=== PATIENT | female | born 1985 ===

== ENCOUNTER 2018-01-11 08:41 | Observation (INO) | payer MEDICAID ==
[2018-01-11] MEDS ORDERED: Sodium Chloride 0.9% 2,000 ML IV ONE (09:03)
--- NOTE | 2018-01-11 09:03 | C.PDOC ---
History Of Present Illness 32 y/o female presents to the ED for abdominal pain. Patient is complaining of constant localized abdominal pain to the RLQ associated with near syncope. She also complains of nausea, vomiting, and dizziness since this morning. LMP unknown. PMD: none provided LIMITED DUE TO CLIN COND RLQ PAIN, NV, DIZZY SINCE THIS MORNING. UNK LAST LMP. PAIN CONSTANT LOCALIZED. + NEAR SYNCOPE. PSH CSECT. ROS LIMITED EXAM MOD DIST MILD TOX HEENT PERRLA ABD +RLQ TEND MOD SOFT NO R/G SKIN COLD DIAPH CV RRR NEURO NO FOCAL DEF REMAINDER NEG PMD DR MCLEAN Time Seen by Provider: 01/11/18 08:52 Chief Complaint (Nursing): Abdominal Pain History Per: Patient History/Exam Limitations: no limitations Onset/Duration Of Symptoms: Hrs Current Symptoms Are (Timing): Still Present Location Of Pain/Discomfort: RLQ Quality Of Discomfort: "Pain" Associated Symptoms: Nausea, Vomiting Past Medical History Reviewed: Historical Data, Nursing Documentation, Vital Signs Vital Signs: Last Vital Signs Temp 97.7 F 01/11/18 10:55 Pulse 74 01/11/18 12:35 Resp 14 01/11/18 12:35 BP 124/71 01/11/18 12:35 Pulse Ox 96 01/11/18 12:37 - Medical History PMH: No Chronic Diseases Surgical History: Family History: States: No Known Family Hx - Social History Hx Tobacco Use: No Hx Alcohol Use: No Hx Substance Use: No - Immunization History Hx Tetanus Toxoid Vaccination: No Hx Influenza Vaccination: No Hx Pneumococcal Vaccination: No Review Of Systems Except As Marked, All Systems Reviewed And Found Negative. Gastrointestinal: Positive for: Nausea, Vomiting, Abdominal Pain (RLQ) Neurological: Positive for: Dizziness, Other (near syncope) Physical Exam - Physical Exam Appears: Well, Toxic (mild), In Acute Distress Skin: No Warm (cold), Diaphoretic Head: Atraumatic, Normacephalic Eye(s): bilateral: Normal Inspection, PERRL, EOMI Ear(s): Bilateral: Normal (normal) Nose: Normal Throat: Normal Neck: Normal, Supple Cardiovascular: Rhythm Regular, No Murmur Respiratory: Normal Breath Sounds, No Decreased Breath Sounds Gastrointestinal/Abdominal: Normal Exam, Soft (moderate), Tenderness (RLQ), No Guarding, No Rebound Back: Normal Inspection Extremity: Normal ROM Neurological/Psych: Oriented x3, Other (no focal deficits) ED Course And Treatment - Laboratory Results Result Diagrams: 01/11/18 09:13 01/11/18 09:13 Urine POC: Negative ECG: Interpreted By Me, Viewed By Me ECG Rhythm: Sinus Rhythm Rate From EC O2 Sat by Pulse Oximetry: 96 (RA) Pulse Ox Interpretation: Normal - Radiology CXR: Interpreted by Me CXR Interpretation: Yes: No Acute Disease Progress - Re-Evaluation Re-evaluation Note: 01/11/18 12:[address] /US REPORTS REVIEWED. D/W DR ROSE GOOD QUALITY ANALYST: AWARE OF ER FINDINGS, WILL CONSULT ADMIT MEDICINE 01/11/18 12:35 D/W DR [place] C/F PMD WILL ADMIT - Data Reviewed Data Reviewed: Lab, Diagnostic imaging, EKG, Old records - Critical Care Citical Care: Excluding Proc Time Critical Care Time: 90 minutes Disposition Counseled Patient/Family Regarding: Studies Performed, Diagnosis - Disposition Disposition: HOSPITALIZED Disposition Time: 12:35 Condition: STABLE - POA Present On Arrival: None - Clinical Impression Clinical Impression: Intractable pain, Intractable vomiting, Ureterolithiasis Decision To Admit - Pt Status Changed To: Hospital Disposition Of: Observation - . Bed Request Type: Regular Admitting Physician: Lola Ny Patient Diagnosis: Intractable pain, Intractable vomiting, Ureterolithiasis
[2018-01-11] MEDS ORDERED: Sodium Chloride 0.9% 1,000 ML ONE (09:10)
[2018-01-11 09:17] LABS: BASO # 0.1 K/uL (0.0-0.2); BASO % 0.8 % (0.0-2.0); EOS # 0.1 K/uL (0.0-0.7); EOS % 1.4 % (0.0-4.0); HEMOGLOBIN 12.2 g/dL (11.0-16.0); LYMPH # 1.9 K/uL (1.0-4.3); MEAN CELL VOLUME 87.2 fL (81.0-99.0); MEAN CORPUSCULAR HEMOGLOBIN 30.1 pg (27.0-31.0); MEAN CORPUSCULAR HGB CONC 34.5 g/dL (33.0-37.0); MONO # 0.2 K/uL (0.0-0.8); MONO % 3.6 % (0.0-10.0); NEUT # 4.5 K/uL (1.8-7.0); NEUT % 66.2 % (50.0-75.0); RBC 4.05 Mil/uL (3.80-5.20); RED CELL DISTRIBUTION WIDTH 12.9 % (11.5-14.5); WHITE BLOOD COUNT 6.8 K/uL (4.8-10.8)
--- NOTE | 2018-01-11 09:22 | RAD ---
PROCEDURE: CHEST RADIOGRAPH, 1 VIEW HISTORY: NEAR SYNCOPE COMPARISON: None available. FINDINGS: LUNGS: Clear. PLEURA: No pneumothorax or pleural fluid seen. CARDIOVASCULAR: Normal. OSSEOUS STRUCTURES: No significant abnormalities. VISUALIZED UPPER ABDOMEN: Normal. OTHER FINDINGS: None. IMPRESSION: No active disease.
[2018-01-11 09:30] LABS: ALB/GLOB RATIO 1.1 (1.0-2.1); ALBUMIN 4.3 g/dL (3.5-5.0); AST/SGOT 16 U/L (14-36); BLOOD UREA NITROGEN 18 mg/dL (7-17); GFR AFRICAN-AMERICAN > 60; GFR NON-AFRICAN AMERICAN > 60
[2018-01-11 09:33] LABS: ALT/SGPT < 6 U/L (9-52)
[2018-01-11] MEDS ORDERED: Morphine 4 MG/ML VIAL ONE ×2 (09:42→12:48)
[2018-01-11 10:00] LABS: SQUAMOUS EPITHIAL 14 /hpf (0-5); URINE BILIRUBIN NEGATIVE (NEGATIVE); URINE BLOOD 2+ (NEGATIVE); URINE CLARITY Hazy (Clear); URINE COLOR Yellow (YELLOW); URINE GLUCOSE (UA) NORMAL (Normal); URINE LEUKOCYTE ESTERASE 1+ Leu/uL (Negative); URINE PROTEIN NEGATIVE (NEGATIVE); URINE UROBILINOGEN NORMAL mg/dL (0.2-1.0)
[2018-01-11] MEDS ORDERED: Lidocaine 109 MG in Sodium Chloride 0.9% 100 ML IV STA (10:05)
[2018-01-11] MEDS ORDERED: Iodixanol 320 MG/ML 100 ML BOTTLE IV ONE (11:19)
--- NOTE | 2018-01-11 11:53 | US ---
HISTORY: RLQ/PELVIC PAIN COMPARISON: None available. TECHNIQUE: Grayscale, color Doppler and spectral evaluation the pelvis performed transabdominally and transvaginally FINDINGS: UTERUS: Measures 9.6 x 4.9 x 6.4 cm. Retroverted. Normal in size and appearance. No fibroid or other mass lesion seen. ENDOMETRIUM: Measures 5 mm in diameter. Unremarkable. CERVIX: No cervical abnormality identified. RIGHT OVARY: Measures 3.4 x 1.6 x 3.0 cm. No solid mass. Normal flow. LEFT OVARY: Measures 3.6 x 1.8 x 3.1 cm. No solid mass. Normal flow. FREE FLUID: No significant free fluid noted. OTHER FINDINGS: None. IMPRESSION: Unremarkable pelvic ultrasound.
--- NOTE | 2018-01-11 12:20 | CT ---
PROCEDURE: CT Abdomen and Pelvis with contrast HISTORY: RLQ PAIN COMPARISON: None. TECHNIQUE: Contrast dose: 100 mL Visipaque 320 Radiation dose: Total exam DLP = 923.94 mGy-cm. This CT exam was performed using one or more of the following dose reduction techniques: Automated exposure control, adjustment of the mA and/or kV according to patient size, and/or use of iterative reconstruction technique. FINDINGS: LOWER THORAX: Unremarkable. LIVER: Unremarkable. No gross lesion or ductal dilatation. GALLBLADDER AND BILE DUCTS: Unremarkable. PANCREAS: Unremarkable. No gross lesion or ductal dilatation. SPLEEN: Unremarkable. ADRENALS: Unremarkable. No mass. KIDNEYS AND URETERS: Right hydroureteronephrosis. Obstructing 2 mm calculus at the right ureterovesical junction. No renal calculus identified. Evaluation for small calculi is limited by the presence of intravenous contrast. No renal mass. No left hydronephrosis or hydroureter. VASCULATURE: Unremarkable. No aortic aneurysm. BOWEL: Mild sigmoid diverticulosis without evidence of diverticulitis. No bowel obstruction. No other abnormal bowel loops. APPENDIX: Normal appendix. PERITONEUM: Unremarkable. No free fluid. No free air. LYMPH NODES: Unremarkable. No enlarged lymph nodes. BLADDER: Nondistended REPRODUCTIVE: Normal retroverted uterus BONES: No acute fracture. OTHER FINDINGS: None. IMPRESSION: Obstructing 2 mm calculus at the right ureterovesical junction with mild right hydroureteronephrosis.
--- NOTE | 2018-01-11 14:47 | CP.PCM.PN ---
Subjective - Date & Time of Evaluation Date of Evaluation: 01/11/18 Time of Evaluation: 14:47 - Subjective Subjective: CC: RLQ abdominal pain since the morning. 32F with no past medical history presents with RLQ abdominal pain and vomiting multiple episodes described as liquid and saliva. Patient states she woke up at 7 am with sharp pain on her right loer quadrant. Patient states she does not feel hungry. Patient states her right back pain is bothering her. Patient denies fever, chills, shortness of breath, diarrhea, constipation, hematuria, polyuria, polydipsia. Patient admits to nausea, vomiting. Past medical history: none Past Surgical History: none Past hospitalizations: none Family history: mother and mother's brother had kidney stones. Social history: never smoked, never drank alcohol, denies illicit drug use. Patient denies being sexually active recently and cannot recall when her last sexual activity was. Patient denies knowing her LMP. Allergies NKDA PMD: Dr. Omalley in [facility] Objective - Vital Signs/Intake and Output Vital Signs (last 24 hours): Temp Pulse Resp BP Pulse Ox 98.9 F 68 16 138/79 99 01/11/18 14:23 01/11/18 14:23 01/11/18 14:23 01/11/18 14:23 01/11/18 14:23 - Labs Labs: 01/11/18 09:13 01/11/18 09:13 - Constitutional Appears: Non-toxic, No Acute Distress - Head Exam Head Exam: NORMAL INSPECTION, NORMOCEPHALIC - Eye Exam Eye Exam: EOMI, Normal appearance - ENT Exam ENT Exam: Mucous Membranes Moist, Normal Exam - Neck Exam Neck Exam: Full ROM. absent: Tenderness, Thyromegaly - Respiratory Exam Respiratory Exam: Clear to Ausculation Bilateral, NORMAL BREATHING PATTERN. absent: Accessory Muscle Use, Chest Wall Tenderness - Cardiovascular Exam Cardiovascular Exam: REGULAR RHYTHM, +S1, +S2. absent: Bradycardia, Tachycardia - GI/Abdominal Exam GI & Abdominal Exam: Soft, Normal Bowel Sounds. absent: Guarding, Tenderness, Rebound - Extremities Exam Extremities Exam: Full ROM, Normal Inspection. absent: Pedal Edema - Back Exam Back Exam: Full ROM, NORMAL INSPECTION. absent: CVA tenderness (L), CVA tenderness (R) - Neurological Exam Neurological Exam: Alert, Awake, CN II-XII Intact, Oriented x3 - Psychiatric Exam Psychiatric exam: Normal Affect, Normal Mood - Skin Skin Exam: Dry, Intact, Normal Color, Warm Assessment and Plan - Assessment and Plan (Free Text) Assessment: Ureterolithiasis with vomiting and nausea RLQ pain 2mm stone found on CT abdomen/pelvis with IV contrast negative for elevated beta hCG Transvaginal US: no active disease noted. no ectopic , torsion Urology Consult: Dr. Conteh IVF: NS @200cc/hr Prophylaxis SCDs in bed Patient can ambulate Pepcid 20mg PO QD discussed with Dr. Surjit Dwyer, DO PGY1
--- NOTE | 2018-01-11 14:55 | CP.PCM.HP ---
<Arabella Dwyer - Last Filed: 01/11/18 18:41> History of Present Illness - History of Present Illness History of Present Illness: CC: RLQ abdominal pain since the morning. 32F with no past medical history presents with RLQ abdominal pain and vomiting multiple episodes described as liquid and saliva. Patient states she woke up at 7 am with sharp pain on her right loer quadrant. Patient states she does not feel hungry. Patient states her right back pain is bothering her. Patient denies fever, chills, shortness of breath, diarrhea, constipation, hematuria, polyuria, polydipsia. Patient admits to nausea, vomiting. Past medical history: none Past Surgical History: none Past hospitalizations: none Family history: mother and mother's brother had kidney stones. Social history: never smoked, never drank alcohol, denies illicit drug use. Patient denies being sexually active recently and cannot recall when her last sexual activity was. LMP December 28. Allergies NKDA PMD: Dr. Andrade in [facility] Present on Admission - Present on Admission Any Indicators Present on Admission: No History of DVT/PE: No History of Uncontrolled Diabetes: No Urinary Catheter: No Decubitus Ulcer Present: No Review of Systems - Review of Systems All systems: reviewed and no additional remarkable complaints except - Respiratory Respiratory: absent: Dyspnea, Chest Congestion - Genitourinary Genitourinary: absent: Hematuria, Pyuria, Nocturia, Urinary Incontinence, Voiding Freq/Small Amts, Bladder Distension - Reproductive: Female Reproductive:Female: absent: Amenorrhea, Pelvic Pain, Vaginal Discharge Past Patient History - Infectious Disease Hx of Infectious Diseases: None - Past Medical History & Family History Past Medical History?: No - Past Social History Smoking Status: Never Smoked Alcohol: None Drugs: Denies - PSYCHIATRIC Hx Substance Use: No Meds Home Medications: Home Medication List Medication Instructions Recorded Confirmed Type Ciprofloxacin HCl [Cipro] 500 mg PO Q12 #14 tab 01/11/18 Rx Tamsulosin HCl [Flomax] 0.4 mg PO DAILY #30 cap.er.24h 01/11/18 Rx Allergies/Adverse Reactions: Allergies Allergy/AdvReac Type Severity Reaction Status Date / Time No Known Allergies Allergy Verified 01/11/18 08:51 Physical Exam - Additional Findings Additional findings: - Head Exam Head Exam: NORMAL INSPECTION, NORMOCEPHALIC - Eye Exam Eye Exam: EOMI, Normal appearance - ENT Exam ENT Exam: Mucous Membranes Moist, Normal Exam - Neck Exam Neck Exam: Full ROM. absent: Tenderness, Thyromegaly - Respiratory Exam Respiratory Exam: Clear to Ausculation Bilateral, NORMAL BREATHING PATTERN. absent: Accessory Muscle Use, Chest Wall Tenderness - Cardiovascular Exam Cardiovascular Exam: REGULAR RHYTHM, +S1, +S2. absent: Bradycardia, Tachycardia - GI/Abdominal Exam GI & Abdominal Exam: Soft, Normal Bowel Sounds. absent: Guarding, Tenderness, Rebound - Extremities Exam Extremities Exam: Full ROM, Normal Inspection. absent: Pedal Edema - Back Exam Back Exam: Full ROM, NORMAL INSPECTION. absent: CVA tenderness (L), CVA tenderness (R) - Neurological Exam Neurological Exam: Alert, Awake, CN II-XII Intact, Oriented x3 - Psychiatric Exam Psychiatric exam: Normal Affect, Normal Mood - Skin Skin Exam: Dry, Intact, Normal Color, Warm Results - Vital Signs Recent Vital Signs: Last Vital Signs Temp 98.9 F 01/11/18 14:23 Pulse 68 01/11/18 14:23 Resp 16 01/11/18 14:23 BP 138/79 01/11/18 14:23 Pulse Ox 99 01/11/18 14:23 - Labs Result Diagrams: 01/11/18 09:13 01/11/18 09:13 Labs: Laboratory Results - last 24 hr 01/11/18 01/11/18 01/11/18 08:57 09:13 09:13 WBC 6.8 RBC 4.05 Hgb 12.2 Hct 35.3 MCV 87.2 MCH 30.1 MCHC 34.5 RDW 12.9 Plt Count 209 MPV 9.0 Neut % (Auto) 66.2 Lymph % (Auto) 28.0 [place] % (Auto) 3.6 Eos % (Auto) 1.4 Baso % (Auto) 0.8 Neut # (Auto) 4.5 Lymph # (Auto) 1.9 [place] # (Auto) 0.2 Eos # (Auto) 0.1 Baso # (Auto) 0.1 Sodium 142 Potassium 3.6 Chloride 106 Carbon Dioxide 20 L Anion Gap 20 BUN 18 H Creatinine 0.8 Est GFR ( Amer) > 60 Est GFR (Non-Af Amer) > 60 POC Glucose (mg/dL) 112 H Random Glucose 113 H Calcium 9.0 Total Bilirubin 0.5 AST 16 ALT < 6 L Alkaline Phosphatase 69 Total Protein 8.2 Albumin 4.3 Globulin 3.9 Albumin/Globulin Ratio 1.1 Beta HCG, Quant < 2.39 Urine Color Urine Clarity Urine pH Ur Specific [place] Urine Protein Urine Glucose (UA) Urine Ketones Urine Blood Urine Nitrate Urine Bilirubin Urine Urobilinogen Ur Leukocyte Esterase Urine WBC (Auto) Urine RBC (Auto) Ur Squamous Epith Cells 01/11/18 09:38 WBC RBC Hgb Hct MCV MCH MCHC RDW Plt Count MPV Neut % (Auto) Lymph % (Auto) [place] % (Auto) Eos % (Auto) Baso % (Auto) Neut # (Auto) Lymph # (Auto) [place] # (Auto) Eos # (Auto) Baso # (Auto) Sodium Potassium Chloride Carbon Dioxide Anion Gap BUN Creatinine Est GFR ( Amer) Est GFR (Non-Af Amer) POC Glucose (mg/dL) Random Glucose Calcium Total Bilirubin AST ALT Alkaline Phosphatase Total Protein Albumin Globulin Albumin/Globulin Ratio Beta HCG, Quant Urine Color Yellow Urine Clarity Hazy Urine pH 5.0 Ur Specific [place] 1.023 Urine Protein Negative Urine Glucose (UA) Normal Urine Ketones Negative Urine Blood 2+ H Urine Nitrate Negative Urine Bilirubin Negative Urine Urobilinogen Normal Ur Leukocyte Esterase 1+ H Urine WBC (Auto) 5 Urine RBC (Auto) 10 H Ur Squamous Epith Cells 14 H Assessment & Plan - Assessment and Plan (Free Text) Assessment: Ureterolithiasis Urology Consult: Dr. Conteh NPO Strain Urine Order in place Patient taken to OR for stent placement and stone retraction. Morphine 2 mg IVP Q4H PRN Zofran 4mg IVP Q4H PRN NS 150cc/hr Prophylaxis SCDs Pepcid 20mg Dr. Surjit Dwyer, DO PGY1 - Date & Time Date: 01/11/18 Time: 18:42 <Lola Eddy V - Last Filed: 01/11/18 18:52> Results - Vital Signs Recent Vital Signs: Last Vital Signs Temp 98.5 F 01/11/18 16:23 Pulse 60 01/11/18 16:23 Resp 20 01/11/18 16:23 BP 130/80 01/11/18 16:23 Pulse Ox 100 01/11/18 16:23 - Labs Result Diagrams: 01/11/18 09:13 05/09/18 09:13 Labs: Laboratory Results - last 24 hr 01/11/18 01/11/18 01/11/18 08:57 09:13 09:13 WBC 6.8 RBC 4.05 Hgb 12.2 Hct 35.3 MCV 87.2 MCH 30.1 MCHC 34.5 RDW 12.9 Plt Count 209 MPV 9.0 Neut % (Auto) 66.2 Lymph % (Auto) 28.0 [place] % (Auto) 3.6 Eos % (Auto) 1.4 Baso % (Auto) 0.8 Neut # (Auto) 4.5 Lymph # (Auto) 1.9 [place] # (Auto) 0.2 Eos # (Auto) 0.1 Baso # (Auto) 0.1 Sodium 142 Potassium 3.6 Chloride 106 Carbon Dioxide 20 L Anion Gap 20 BUN 18 H Creatinine 0.8 Est GFR ( Amer) > 60 Est GFR (Non-Af Amer) > 60 POC Glucose (mg/dL) 112 H Random Glucose 113 H Calcium 9.0 Total Bilirubin 0.5 AST 16 ALT < 6 L Alkaline Phosphatase 69 Total Protein 8.2 Albumin 4.3 Globulin 3.9 Albumin/Globulin Ratio 1.1 Beta HCG, Quant < 2.39 Urine Color Urine Clarity Urine pH Ur Specific [place] Urine Protein Urine Glucose (UA) Urine Ketones Urine Blood Urine Nitrate Urine Bilirubin Urine Urobilinogen Ur Leukocyte Esterase Urine WBC (Auto) Urine RBC (Auto) Ur Squamous Epith Cells 01/11/18 09:38 WBC RBC Hgb Hct MCV MCH MCHC RDW Plt Count MPV Neut % (Auto) Lymph % (Auto) [place] % (Auto) Eos % (Auto) Baso % (Auto) Neut # (Auto) Lymph # (Auto) [place] # (Auto) Eos # (Auto) Baso # (Auto) Sodium Potassium Chloride Carbon Dioxide Anion Gap BUN Creatinine Est GFR ( Amer) Est GFR (Non-Af Amer) POC Glucose (mg/dL) Random Glucose Calcium Total Bilirubin AST ALT Alkaline Phosphatase Total Protein Albumin Globulin Albumin/Globulin Ratio Beta HCG, Quant Urine Color Yellow Urine Clarity Hazy Urine pH 5.0 Ur Specific [place] 1.023 Urine Protein Negative Urine Glucose (UA) Normal Urine Ketones Negative Urine Blood 2+ H Urine Nitrate Negative Urine Bilirubin Negative Urine Urobilinogen Normal Ur Leukocyte Esterase 1+ H Urine WBC (Auto) 5 Urine RBC (Auto) 10 H Ur Squamous Epith Cells 14 H Attending/Attestation - Attestation I have personally seen and examined this patient.: Yes I have fully participated in the care of the patient.: Yes I have reviewed all pertinent clinical information: Yes Notes (Text): Patient seen, examined and case discussed with day-time resident. Patient reports right flank pain this morning, first time attack, which prompted her to come to the emergency room. Patient was very nauseous but abated by the time I saw her at 330PM on the medical floor. Patient was seen and evaluated by urology. Patient scheduled for OR for stent placement and stone extraction. Patient started on IV fluids, anti-emetic, and pain medications. Assessment/Plan 1) Ureterolithiasis * Urology Consult: Dr. Conteh on board help appreciated * NPO * Strain Urine Order in place for stone * Patient scheduled for stent placement and stone extraction * Morphine 2 mg IVP Q4H PRN * Zofran 4mg IVP Q4H PRN * NS 150cc/hr 2) Prophylaxis * SCDs * Pepcid 20mg PO BID for GI PPx * patient is NPO at this time
[2018-01-11] MEDS ORDERED: Morphine 4 MG/ML VIAL IVP PRN (15:39)
[2018-01-11] MEDS ORDERED: Sodium Chloride 0.9% 1,000 ML IV SCH (15:45)
[2018-01-11] MEDS ORDERED: Propofol 10 mg/ml Inj (20 ML) ONE (17:46)
[2018-01-11] MEDS ORDERED: Lidocaine Hydrochloride 5 ML INJ ONE (17:47)
[2018-01-11] MEDS ORDERED: Ciprofloxacin 400mg/200ml D5W 400 MG/200 ML BAG IVPB ONE (17:47)
[2018-01-11] MEDS ORDERED: Iohexol 240 (50 ml) ONE (17:48)
[2018-01-11] MEDS ORDERED: Lidocaine 2% Jelly (Uro-Jet) ONE (17:48)
--- NOTE | 2018-01-11 18:21 | CP.PCM.DIS ---
Provider - Provider Date of Admission: 01/11/18 12:37 Attending physician: Lola Eddy, [place] Hospital Course - Lab Results Lab Results: Most Recent Lab Values WBC 6.8 K/uL (4.8-10.8) 01/11/18 09:13 RBC 4.05 Mil/uL (3.80-5.20) 01/11/18 09:13 Hgb 12.2 g/dL (11.0-16.0) 01/11/18 09:13 Hct 35.3 % (34.0-47.0) 01/11/18 09:13 MCV 87.2 fL (81.0-99.0) 01/11/18 09:13 MCH 30.1 pg (27.0-31.0) 01/11/18 09: MCHC 34.5 g/dL (33.0-37.0) 01/11/18 09:13 RDW 12.9 % (11.5-14.5) 01/11/18 09:13 Plt Count 209 K/uL (130-400) 01/11/18 09:13 MPV 9.0 fL (7.2-11.7) 01/11/18 09:13 Neut % (Auto) 66.2 % (50.0-75.0) 01/11/18 09:13 Lymph % (Auto) 28.0 % (20.0-40.0) 01/11/18 09:13 [place] % (Auto) 3.6 % (0.0-10.0) 01/11/18 09:13 Eos % (Auto) 1.4 % (0.0-4.0) 01/11/18 09:13 Baso % (Auto) 0.8 % (0.0-2.0) 01/11/18 09:13 Neut # (Auto) 4.5 K/uL (1.8-7.0) 01/11/18 09:13 Lymph # (Auto) 1.9 K/uL (1.0-4.3) 01/11/18 09:13 [place] # (Auto) 0.2 K/uL (0.0-0.8) 01/11/18 09:13 Eos # (Auto) 0.1 K/uL (0.0-0.7) 01/11/18 09:13 Baso # (Auto) 0.1 K/uL (0.0-0.2) 01/11/18 09:13 Sodium 142 mmol/L (132-148) 01/11/18 09:13 Potassium 3.6 mmol/L (3.6-5.2) 01/11/18 09:13 Chloride 106 mmol/L (98-107) 01/11/18 09:13 Carbon Dioxide 20 mmol/L (22-30) L 01/11/18 09:13 Anion Gap 20 (10-20) 01/11/18 09:13 BUN 18 mg/dL (7-17) H 01/11/18 09:13 Creatinine 0.8 mg/dL (0.7-1.2) 01/11/18 09:13 Est GFR ( Amer) > 60 01/11/18 09:13 Est GFR (Non-Af Amer) > 60 01/11/18 09:13 POC Glucose (mg/dL) 112 mg/dL (65-110) H 01/11/18 08:57 Random Glucose 113 mg/dL (65-105) H 01/11/18 09:13 Calcium 9.0 mg/dl (8.6-10.4) 01/11/18 09:13 Total Bilirubin 0.5 mg/dL (0.2-1.3) 01/11/18 09:13 AST 16 U/L (14-36) 01/11/18 09:13 ALT < 6 U/L (9-52) L 01/11/18 09:13 Alkaline Phosphatase 69 U/L (38-126) 01/11/18 09:13 Total Protein 8.2 g/dL (6.3-8.3) 01/11/18 09:13 Albumin 4.3 g/dL (3.5-5.0) 01/11/18 09:13 Globulin 3.9 gm/dL (2.2-3.9) 01/11/18 09:13 Albumin/Globulin Ratio 1.1 (1.0-2.1) 01/11/18 09:13 Beta HCG, Quant < 2.39 mIU/ML 01/11/18 09:13 Urine Color Yellow (YELLOW) 01/11/18 09:38 Urine Clarity Hazy (Clear) 01/11/18 09:38 Urine pH 5.0 (5.0-8.0) 01/11/18 09:38 Ur Specific [place] 1.023 (1.003-1.030) 01/11/18 09:38 Urine Protein Negative mg/dL (NEGATIVE) 01/11/18 09:38 Urine Glucose (UA) Normal mg/dL (Normal) 01/11/18 09:38 Urine Ketones Negative mg/dL (NEGATIVE) 01/11/18 09:38 Urine Blood 2+ (NEGATIVE) H 01/11/18 09:38 Urine Nitrate Negative (NEGATIVE) 01/11/18 09:38 Urine Bilirubin Negative (NEGATIVE) 01/11/18 09:38 Urine Urobilinogen Normal mg/dL (0.2-1.0) 01/11/18 09:38 Ur Leukocyte Esterase 1+ Anu/uL (Negative) H 01/11/18 09:38 Urine WBC (Auto) 5 /hpf (0-5) 01/11/18 09:38 Urine RBC (Auto) 10 /hpf (0-3) H 01/11/18 09:38 Ur Squamous Epith Cells 14 /hpf (0-5) H 01/11/18 09:38 Discharge Exam - Head Exam Head Exam: NORMAL INSPECTION, NORMOCEPHALIC Discharge Plan - Follow Up Plan Condition: STABLE Disposition: HOME/ ROUTINE
--- NOTE | 2018-01-11 18:21 | PCM.SURG1 ---
Surgeon's Initial Post Op Note - Surgeon's Notes Surgeon: Wero Ocular Care Technician: EUSEBIO Type of Anesthesia: General LMA Anesthesia Administered By: staff Pre-Operative Diagnosis: Right ureteral calculi/colic Operative Findings: Right lower ureteral calculi Post-Operative Diagnosis: same Operation Performed: Ureteroscopy/stone basket/stent insertion Specimen/Specimens Removed: stone Estimated Blood Loss: EBL {In ML}: 0 Blood Products Given: N/A Drains Used: No Drains Post-Op Condition: Good Date of Surgery/Procedure: 01/11/18 Time of Surgery/Procedure: 18:22
[2018-01-11] MEDS ORDERED: HYDROmorphone 0.5 mg/0.5 ml ISec IVP PRN (18:23)
--- NOTE | 2018-01-11 18:41 | RAD ---
PROCEDURE: Intraoperative Fluoroscopy. HISTORY: RT URETEROVESICAL CALCULI FINDINGS: Fluoroscopic assistance was provided. 16.5 seconds fluoroscopy time utilized during this procedure. Radiation dose = 0.62554 mGy. Please refer to the operative report from FRANCINE Birch.
--- NOTE | 2018-01-11 18:48 | CP.PCM.DIS ---
Provider - Provider Date of Admission: 01/11/18 12:37 Attending physician: Lola Eddy DO Consults: Dr. Conteh Time Spent in preparation of Discharge (in minutes): 25 Diagnosis - Discharge Diagnosis (1) Ureterolithiasis Status: Resolved Comment: s/p ureteroscopy, stent placement and stone retrieval Hospital Course - Lab Results Lab Results: Most Recent Lab Values WBC 6.8 K/uL (4.8-10.8) 01/11/18 09:13 RBC 4.05 Mil/uL (3.80-5.20) 01/11/18 09:13 Hgb 12.2 g/dL (11.0-16.0) 01/11/18 09:13 Hct 35.3 % (34.0-47.0) 01/11/18 09:13 MCV 87.2 fL (81.0-99.0) 01/11/18 09:13 MCH 30.1 pg (27.0-31.0) 01/11/18 09:13 MCHC 34.5 g/dL (33.0-37.0) 01/11/18 09:13 RDW 12.9 % (11.5-14.5) 01/11/18 09:13 Plt Count 209 K/uL (130-400) 01/11/18 09:13 MPV 9.0 fL (7.2-11.7) 01/11/18 09:13 Neut % (Auto) 66.2 % (50.0-75.0) 01/11/18 09:13 Lymph % (Auto) 28.0 % (20.0-40.0) 01/11/18 09:13 Barren % (Auto) 3.6 % (0.0-10.0) 01/11/18 09:13 Eos % (Auto) 1.4 % (0.0-4.0) 01/11/18 09:13 Baso % (Auto) 0.8 % (0.0-2.0) 01/11/18 09:13 Neut # (Auto) 4.5 K/uL (1.8-7.0) 01/11/18 09:13 Lymph # (Auto) 1.9 K/uL (1.0-4.3) 01/11/18 09:13 Barren # (Auto) 0.2 K/uL (0.0-0.8) 01/11/18 09:13 Eos # (Auto) 0.1 K/uL (0.0-0.7) 01/11/18 09:13 Baso # (Auto) 0.1 K/uL (0.0-0.2) 01/11/18 09:13 Sodium 142 mmol/L (132-148) 01/11/18 09:13 Potassium 3.6 mmol/L (3.6-5.2) 01/11/18 09:13 Chloride 106 mmol/L (98-107) 01/11/18 09:13 Carbon Dioxide 20 mmol/L (22-30) L 01/11/18 09:13 Anion Gap 20 (10-20) 01/11/18 09:13 BUN 18 mg/dL (7-17) H 01/11/18 09:13 Creatinine 0.8 mg/dL (0.7-1.2) 01/11/18 09:13 Est GFR ( Amer) > 60 01/11/18 09:13 Est GFR (Non-Af Amer) > 60 01/11/18 09:13 POC Glucose (mg/dL) 112 mg/dL (65-110) H 01/11/18 08:57 Random Glucose 113 mg/dL (65-105) H 01/11/18 09:13 Calcium 9.0 mg/dl (8.6-10.4) 01/11/18 09:13 Total Bilirubin 0.5 mg/dL (0.2-1.3) 01/11/18 09:13 AST 16 U/L (14-36) 01/11/18 09:13 ALT < 6 U/L (9-52) L 01/11/18 09:13 Alkaline Phosphatase 69 U/L (38-126) 01/11/18 09:13 Total Protein 8.2 g/dL (6.3-8.3) 01/11/18 09:13 Albumin 4.3 g/dL (3.5-5.0) 01/11/18 09:13 Globulin 3.9 gm/dL (2.2-3.9) 01/11/18 09:13 Albumin/Globulin Ratio 1.1 (1.0-2.1) 01/11/18 09:13 Beta HCG, Quant < 2.39 mIU/ML 01/11/18 09:13 Urine Color Yellow (YELLOW) 01/11/18 09:38 Urine Clarity Hazy (Clear) 01/11/18 09:38 Urine pH 5.0 (5.0-8.0) 01/11/18 09:38 Ur Specific Nursery 1.023 (1.003-1.030) 01/11/18 09:38 Urine Protein Negative mg/dL (NEGATIVE) 01/11/18 09:38 Urine Glucose (UA) Normal mg/dL (Normal) 01/11/18 09:38 Urine Ketones Negative mg/dL (NEGATIVE) 01/11/18 09:38 Urine Blood 2+ (NEGATIVE) H 01/11/18 09:38 Urine Nitrate Negative (NEGATIVE) 01/11/18 09:38 Urine Bilirubin Negative (NEGATIVE) 01/11/18 09:38 Urine Urobilinogen Normal mg/dL (0.2-1.0) 01/11/18 09:38 Ur Leukocyte Esterase 1+ Anu/uL (Negative) H 01/11/18 09:38 Urine WBC (Auto) 5 /hpf (0-5) 01/11/18 09:38 Urine RBC (Auto) 10 /hpf (0-3) H 01/11/18 09:38 Ur Squamous Epith Cells 14 /hpf (0-5) H 01/11/18 09:38 - Hospital Course Hospital Course: HPI 32F with no past medical history presents with RLQ abdominal pain and vomiting multiple episodes described as liquid and saliva. Patient states she woke up at 7 am with sharp pain on her right lower quadrant. Pain did not radiate. No dysuria, suprapubic pain, no abnormal vaginal discharge, no hematuria. Patient also had pain in her back on the right, but was not found to have CVA tenderness on physical exam. Patient's last menstrual period was 2 weeks ago and tested negative in ED for . Hospital course Pain management was given during patient's stay. Nausea medication also was given in ED. Transvaginal US was negative for ectopic cyst rupture, and ovarian torsion. CT abdomen/pelvis showed 2mm obstructing stone in right ureter and right hydronephrosis. Patient was admitted, placed NPO with orders to strain urine. Patient was seen by Dr. Conteh. Patient was brought to OR for Ureteroscopy, stone basket, and stent insertion. Patient tolerated procedure well and was cleared for discharge. Medication on discharge: Cipro 500mg PO BID for 7 days, flomax Patients encouraged to stay hydrated Patient discharged with instructions to f/u urology in a week. Above is a brief summary of patient's hospital course. Please see EMR for more information discussed with Dr. Surjit Dwyer DO - Date & Time of H&P Date of H&P: 01/11/18 Time of H&P: 18:49 Discharge Exam - Head Exam Head Exam: NORMAL INSPECTION, NORMOCEPHALIC - Additional Findings Additional findings: - Head Exam Head Exam: NORMAL INSPECTION, NORMOCEPHALIC - Eye Exam Eye Exam: EOMI, Normal appearance - ENT Exam ENT Exam: Mucous Membranes Moist, Normal Exam - Neck Exam Neck Exam: Full ROM. absent: Tenderness, Thyromegaly - Respiratory Exam Respiratory Exam: Clear to Ausculation Bilateral, NORMAL BREATHING PATTERN. absent: Accessory Muscle Use, Chest Wall Tenderness - Cardiovascular Exam Cardiovascular Exam: REGULAR RHYTHM, +S1, +S2. absent: Bradycardia, Tachycardia - GI/Abdominal Exam GI & Abdominal Exam: Soft, Normal Bowel Sounds. absent: Guarding, Tenderness, Rebound - Extremities Exam Extremities Exam: Full ROM, Normal Inspection. absent: Pedal Edema - Back Exam Back Exam: Full ROM, NORMAL INSPECTION. absent: CVA tenderness (L), CVA tenderness (R) - Neurological Exam Neurological Exam: Alert, Awake, CN II-XII Intact, Oriented x3 - Psychiatric Exam Psychiatric exam: Normal Affect, Normal Mood - Skin Skin Exam: Dry, Intact, Normal Color, Warm Discharge Plan - Discharge Medications Prescriptions: Ciprofloxacin HCl [Cipro] 500 mg PO Q12 #14 tab Tamsulosin HCl [Flomax] 0.4 mg PO DAILY #30 cap.er.24h - Follow Up Plan Condition: STABLE Disposition: HOME/ ROUTINE Instructions: Ciprofloxacin (Systemic), Urinary Obstruction (DC), Tamsulosin, Ureteroscopy Additional Instructions: follow up with urology Dr. Conteh in One week stay hydrated Take Cipro 500mg PO BID x 7 days Referrals: Camden Conteh Jr., MD [Staff Provider] -
[2018-01-11 19:28] VITALS: BP 138/84; PULSE 84; RESP 20; TEMP 98.4; O2SAT 95
--- NOTE | 2018-01-12 04:55 | CON ---
DATE: 01/11/2018 CHIEF COMPLAINT: History of right flank pain. HISTORY OF PRESENT ILLNESS: The patient was admitted to the [facility] ER in the early a.m. of 01/11/2018. She was diagnosed with right ureteral calculi. She continued to have nausea and vomiting. Her pain could not be controlled and she was admitted to the hospital. REVIEW OF SYSTEMS: GI: The patient has nausea and vomiting since having abdominal pain. No constipation or history of diarrhea. : The patient has no history of bladder calculi. MEDICAL INSURANCE VERIFIER: The patient has children and has had a . She has no history of hysterectomy. NEUROLOGICAL: The patient has no history of tremor or neurological disease. No history of syncope. ORTHOPEDIC: No history of orthopedic abnormities or trauma. SOCIAL AND FAMILY HISTORY: The patient lives in [facility]. She is unemployed. She neither smokes nor drinks. PHYSICAL EXAMINATION: VITAL SIGNS: Within normal limits. HEAD, EARS, EYES, NOSE, AND THROAT: Within normal limits. NECK: Supple. There are no bruits, nodes, or masses. CHEST: Clear bilaterally. There are no rales or rhonchi. ABDOMEN: There is mild right CVA tenderness. There is slight decrease in bowel sounds. There is no anterior abdominal tenderness, guarding, or rebound. There is no palpable bladder distention. There is no palpable renal enlargement or hydronephrosis. VAGINAL: Declined by the patient. EXTREMITIES: Within normal limits. VASCULAR: Normal. NEUROLOGIC: Normal. IMPRESSION: My impression is right lower ureteral calculi. PLAN: After discussing with the patient and reviewing the patient's CAT scan, lab reports, and discussing options with the patient, they would like to proceed with ureteroscopy. The patient was apprised of the risks and complications of ureteroscopy. The fact that a stent would be in place, and stone might not be accessible, and she agreed to accept the risks and complications of the procedure. Decision was made to proceed with ureteroscopy. Camden Conteh MD
--- NOTE | 2018-01-12 05:27 | OP ---
PROCEDURE DATE: 01/11/2018 PREOPERATIVE DIAGNOSIS: Right lower ureteral calculi. POSTOPERATIVE DIAGNOSES: Right lower ureteral calculi with hydronephrosis and ureteral obstruction. PROCEDURE: Cystoscopy and insertion of guidewire to the right renal pelvis, right ureteroscopy, stone basket, and placement of double J stent. SURGEON: Camden Conteh MD DESCRIPTION OF PROCEDURE: Prior to procedure, a detailed informed consent was obtained from the patient. She is aware of all the risks, complications, and other methods of treating lower ureteral calculi of this size. The patient declines to pursue watchful waiting because of the severe vomiting and pain she is experiencing. She was agreed to accept the risks of this procedure. She was brought into the room, and a timeout was taken according to the rules and regulations of [facility]. The CAT scan films and report were reviewed as well as having the patient confirm the site of the stone that was on the right side. The patient was then received prophylactic antibiotics, and with cystoscope and #21 Storz panendoscope, the bladder was entered atraumatically. There were no stones within the bladder. The right ureteral orifice was localized and cannulized with a 0.038 guidewire. This was passed up to the renal pelvis under fluoroscopic control. There was noted to be significant amount of dye remaining in the kidney. The wire was left in place and backed out and used as a safety wire. It was affixed to the drape, and a ureteroscope was inserted with the second guidewire within the ureteroscope. The right ureteral orifice was localized. The orifice was hydrodilated. The second wire was passed up to the renal pelvis. The scope was passed into the lower ureter. Approximately 2 cm above the superior portion of the intramural tunnel, there was noted to be a stone. After removing the guidewire, a basket was inserted. The stone was basketed and removed and sent for pathological analysis. The original guidewire was used to pass a double J stent which was positioned properly with the proximal end in the renal pelvis and the distal end curled in the bladder. The patient tolerated this procedure well and was sent to the recovery room in good condition. Postprocedure, she was given detailed instructions regarding postoperative care, and we discussed further management with Dr. Lola Eddy. Camden Conteh MD [facility] # [id number]
--- NOTE | 2018-01-12 22:19 | CARD ---
APPROVED REPORT EKG Measurement Heart [id number] <Conclusion> Normal sinus rhythm Septal infarct, age undetermined Abnormal ECG
== END 2018-01-11 20:50 | disposition home or self-care (01) ==
LOC: C.ER 08:41 → EDBD 08:41 → C.9E 12:37 → MERGE 12:37 → C.3T 14:16
PROVIDERS: ADMIT Hospitalist; ATTEND Hospitalist
DX: N13.2 Hydronephrosis with renal and ureteral calculous obstruction (principal)
CPT/HCPCS: 52332; 52352; 71045; 74177; 76830; 76856; 80053; 81001; 82365; 82948; 84702; 85025; 88300; 93005; 96361; 96372; 96374; 96375; 96376; 99285; C1758; C1769; C2617; G0378; J0744; J0780; J1885; J2001; J2270; J2405; J7040; Q9967

== ENCOUNTER 2018-01-23 11:52 | Day surgery (SDC) | payer MEDICAID ==
[2018-01-19 08:47] VITALS: BMI 29.2
[2018-01-23] MEDS ORDERED: Gentamicin 160 MG in Sodium Chloride 0.9% 100 ML IVPB ONE (13:00)
[2018-01-23] MEDS ORDERED: Ciprofloxacin 400mg/200ml D5W 400 MG/200 ML BAG IVPB ONE (16:13)
[2018-01-23] MEDS ORDERED: Propofol 10 mg/ml Inj (20 ML) ONE (16:30)
[2018-01-23] MEDS ORDERED: Midazolam 2 MG/2 ML VIAL ONE (16:30)
--- NOTE | 2018-01-23 16:48 | PCM.SURG1 ---
Surgeon's Initial Post Op Note - Surgeon's Notes Surgeon: [employer] Operator: bryant Type of Anesthesia: General LMA Anesthesia Administered By: Staff Pre-Operative Diagnosis: Right ureteral stent Operative Findings: same Post-Operative Diagnosis: same Operation Performed: Cysto/remove stent Specimen/Specimens Removed: stent Estimated Blood Loss: EBL {In ML}: 0 Blood Products Given: N/A Drains Used: No Drains Post-Op Condition: Good Date of Surgery/Procedure: 01/23/18 Time of Surgery/Procedure: 16:47
[2018-01-23 17:25] VITALS: BP 116/68; PULSE 74; RESP 26; TEMP 98.7; O2SAT 96
--- NOTE | 2018-01-24 08:34 | OP ---
PROCEDURE DATE: 01/23/2018 PREOPERATIVE DIAGNOSIS: Indwelling right ureteral stent. POSTOPERATIVE DIAGNOSIS: Indwelling right ureteral stent. PROCEDURE: Cystoscopy, removal of stent. DESCRIPTION OF PROCEDURE: Prior to procedure, a detailed informed consent was obtained from the patient. She agreed to all the risk and complications of cystoscopy and stent removal. She was brought into the room, and a time-out was taken according to the rules and regulations of [facility]. The patient was draped and prepped in usual manner after receiving prophylactic antibiotics. She was cystoscope with #21 Storz panendoscope. The stent was seen protruding out of the renal orifice and grasped. The patient tolerated the procedure well. She was sent to the recovery room in good condition. Camden Conteh MD
--- NOTE | 2018-01-24 11:07 | RAD ---
HISTORY: RT STENT REMOVAL COMPARISON: No prior. FINDINGS: BOWEL: Normal. No obstruction. No free air. BONES: Normal. OTHER FINDINGS: Double-J stent catheter identified on the right on the single view study. IMPRESSION: No significant or acute findings to account for/ related to the clinical presentation.
== END 2018-01-23 18:04 | disposition home or self-care (01) ==
LOC: C.SDS 11:52
PROVIDERS: ATTEND Urology
DX: Z46.6 Encounter for fitting and adjustment of urinary device (principal); N20.0 Calculus of kidney
CPT/HCPCS: 52310; 74018; J0744; J1580